=== PATIENT | male | born 1940 | race Caucasian/White ===

== ENCOUNTER 2023-04-12 09:06 | Outpatient (RCR) | payer MEDICARE, OTHER, SELFPAY | END 2023-04-12 23:59 | disposition home or self-care (01) | LOC: CRHB 09:06 | PROVIDERS: ATTENDING PHYSICIAN Internal Medicine Cardiovascular Disease; FAMILY PHYSICIAN Internal Medicine | DX: I50.22 Chronic systolic (congestive) heart failure (principal); I42.9 Cardiomyopathy, unspecified | CPT/HCPCS: G0422; G0423 ==

== ENCOUNTER 2023-05-08 08:38 | Emergency (ER) | payer MEDICARE, OTHER, SELFPAY ==
[2023-05-08 08:39] VITALS: BP 110/59
--- NOTE | 2023-05-08 09:32 | ED.MUSCINJ ---
HPI-Injury
General
Chief Complaint: Musculo-Skeletal Complaint
Source: patient
Exam Limitations: none
Time Seen by Provider: 05/08/23 09:13
Travel History
Have you had any contact with someone who has COVID-19?: No
Do you have any symptoms of coronavirus? Fever > 100 degrees, chills, cough, shortness of breath, sore throat, loss of taste or smell, muscle aches, or headache?: No
History of Present Illness-Injury
Initial Injury comments:
83-year-old male with cardiac history presents complaining of multiple complaints. Primary reason for calling EMS with right foot pain that started yesterday made worse with bearing weight. Secondarily he notes he has been tight, he is losing
weight he has been getting lightheaded when he stands. He is anticoagulated on Xarelto. He does have a history of gout. He is pretty active and uses the treadmill for cardiac rehab.
Past History
Past History
ED Past Medical History: Arrthythmia (atrial fibrillation), Asthma (Atrial fibrillation), CVA (TIA), HTN, Hypercholesterolemia and Other (Small bowel obstruction, left carotid endarterectomy, pulmonary embolus, previous C. difficile. DVT, Vertigo ,)
ED Past Surgical History: Bowel resection (With colostomy) and Cardiac (CABG)
Social History
Tobacco: Former smoker
Alcohol: Daily (One beer or Vodka)
Drug: None
Personal:
Living: with family
Employment: Retired
Family History
Family History: Other (Father with kidney failure)
Phy Exam
Physical Exam
Physical Exam:
General: Well-appearing male no acute respiratory distress
HEENT: Normocephalic atraumatic
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 Increased pain with resisted inversion of the foot. Plantar fascia nontender the Achilles tendon is nontender the big toe is nontender
Vascular: 2+ dorsalis pedis pulse right foot
Neurologic: Good sensation right foot
Injury Course
Orders/Labs/Results
Orders:
Orders
05/08/23 09:27
Orthostatic VS- Treatment ONCE
CR Foot - Right Min 3 Views Urgent
Comment:
Reason For Exam: pain
05/08/23 09:39
Complete Blood Count/With Diff Urgent
Comprehensive Metabolic Panel Urgent
05/08/23 10:54
Ortho Boot Right- Treatment ONCE
Short or tall?: Short
Abnormal Lab Results
05/08/23
09:39
RBC 4.45 L 10^6/uL
(4.70-6.10)
MCV 95.7 H fL
(80.0-94.0)
MCH 32.8 H pg
(27.0-31.0)
Plt Count 118 L 10^3/uL
(130-400)
MPV 12.0 H fL
(7.4-10.4)
Absolute Lymphs (auto) 0.7 L 10^3/uL
(1.2-3.4)
Absolute Monos (auto) 0.7 H 10^3/uL
(0.1-0.6)
Lymphocytes % 11.6 L %
(20.5-51.1)
Monocytes % 11.7 H %
(1.7-9.3)
BUN 48 H mg/dl
(9-20)
Creatinine 1.7 H mg/dL
(0.7-1.3)
Glucose 116 H mg/dl
(70-99)
Alkaline Phosphatase 204 H U/L
(38-126)
05/08/23 09:39
05/08/23 09:39
MDM/Problems Addressed
Differential Diagnosis Includes:
Right foot pain. Question tendinitis versus fracture versus stress response. Unlikely to be gout in the location he complains of
Generalized weakness with lightheadedness and weight loss. He notes a decreased appetite. Will check electrolytes and kidney functions. Orthostatic vital signs pendnig.
*Critical Care Note
Total Time (30-74mins, 75-104mins- exclusive of procedures): Not Applicable
Update Note
Update Note:
X-rays right foot negative. Suspect underlying tendinitis. Will place in boot. Workup otherwise showed improving renal functions. Orthostatic vital signs negative. 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
of the other complaints. Stable for discharge
ED Attending Note
-
Portions of this chart may have been created with voice recognition software.� Occasional wrong word or��sound alike� substitutions may have occurred due to the inherent limitations of voice recognition software.
Discharge Plan
Departure
Patient Disposition: Home (Routine Discharge)
Date of Disposition: 05/08/23
Time of Disposition: 10:59
Patient with high blood pressure during this ER visit?: No
Discharge Problem:
Foot tendinitis
Instructions: Muscle and Bone Pain (DC)
Prescriptions:
No Action
budesonide-formoterol [Symbicort] 1 PUFF HFA aerosol inhaler
2 puff inhalation R BID
metoprolol succinate [Toprol XL] 100 MG tablet extended release 24 hr
200 mg PO QPM
Xarelto 15 mg Tablet
15 mg PO QPM
atorvastatin 40 mg Tablet
40 mg PO QPM
Jardiance 10 mg Tablet
10 mg PO DAILY
cyanocobalamin (vitamin B-12) 1,000 mcg Tablet
1,000 mcg PO DAILY
Fruit and Vegetable Daily 5-6-150 mg Capsule
2 cap PO DAILY
magnesium citrate 125 mg Capsule
125 mg PO DAILY
acetaminophen [Tylenol] 325 mg Tablet
650 mg PO DAILYPRN PRN (Reason: pain)
hydralazine 25 mg Tablet
25 mg PO BID Qty: 60 11RF
potassium chloride 20 mEq Tablet,Er Particles/Crystals
20 meq PO DAILY Qty: 30 11RF
furosemide 80 mg Tablet
80 mg PO DAILY Qty: 30 11RF
Referrals:
Solo Orr MD [Family Provider] -
Activity Restrictions/Additional Instructions:
Use boot for ambulating. Use diclofenac gel topically. Rest. Return if worse otherwise follow-up with your treating physicians
Interventions
Interventions:
ED-Musculoskeletal Assessment Last Done: 05/08/23 09:50
[2023-05-08 09:50] VITALS: BP 112/43; BP 116/57; BP 125/49; PULSE 74; PULSE 76; PULSE 82
[2023-05-08 09:51] LABS: % Basophils 0.6 % (0-2); % Eosinophils 1.4 % (0-6); % Immature Granulocytes 0.5 % (0-0.5); % Lymphocytes 11.6 % (20.5-51.1); % Monocytes 11.7 % (1.7-9.3); % Neutrophils 74.2 % (42.2-75.2); Absolute Eosinophils 0.1 10^3/uL (0-0.7); Absolute Lymphocytes 0.7 10^3/uL (1.2-3.4); Absolute Monocytes 0.7 10^3/uL (0.1-0.6); Absolute Neutrophils 4.7 10^3/uL (1.4-6.5); Hematocrit 42.6 % (39.0-52.0); Hemoglobin 14.6 g/dL (13.0-18.0); Mean Corp Hgb Conc. 34.3 g/dL (33.0-37.0); Mean Corpuscular Hgb 32.8 pg (27.0-31.0); Mean Corpuscular Volume 95.7 fL (80.0-94.0); Nucleated Red Blood Cells % 0 % (-); Platelet Count 118 10^3/uL (130-400); Red Blood Cell Count 4.45 10^6/uL (4.70-6.10); Red Cell Dist. Width 13.7 % (11.5-14.5); White Blood Cell Count 6.3 10^3/uL (4.8-10.8)
[2023-05-08 10:31] LABS: ALT (SGPT) 32 U/L (0-50); AST (SGOT) 35 U/L (17-59); Albumin 3.8 g/dl (3.5-5.0); Alkaline Phosphatase 204 U/L (38-126); Blood Urea Nitrogen 48 mg/dl (9-20); Carbon Dioxide 22 mmol/L (22-30); Chloride 106 mmol/L (98-107); Glucose 116 mg/dl (70-99); Potassium 4.2 mmol/L (3.5-5.1); Sodium 135 mmol/L (135-145); Total Bilirubin 1.2 mg/dl (0.2-1.3); Total Protein 6.4 g/dl (6.3-8.2); eGFR 39.26
== END 2023-05-08 11:32 | disposition home or self-care (01) ==
LOC: EMR 08:38
PROVIDERS: Physician Assistant; EMERGENCY PHYSICIAN Emergency Medicine; FAMILY PHYSICIAN Internal Medicine
DX: M77.51 Other enthesopathy of right foot and ankle (principal); Z79.01 Long term (current) use of anticoagulants; Z87.891 Personal history of nicotine dependence
CPT/HCPCS: 99284; 73630; 80053; 85025

== ENCOUNTER → 2023-06-01 07:41 | Outpatient (REF) | payer MEDICARE, OTHER, SELFPAY ==
[2023-06-01 08:49] LABS: Albumin 4.2 g/dl (3.5-5.0); Blood Urea Nitrogen 63 mg/dl (9-20); Calcium 9.7 mg/dl (8.4-10.2); Carbon Dioxide 29 mmol/L (22-30); Chloride 100 mmol/L (98-107); Glucose 108 mg/dl (70-99); Phosphorus 4.4 mg/dl (2.5-4.5); Potassium 5.2 mmol/L (3.5-5.1); Sodium 136 mmol/L (135-145); Total Cholesterol 174 mg/dl (50-199); Triglyceride 89 mg/dl (10-149); Very Low Density Lipoprotein 17 mg/dl (0-30); eGFR 36.66
[2023-06-01 09:01] LABS: HDL Cholesterol 112 mg/dl; LDL Cholesterol, Calculated 45 mg/dl
[2023-06-01 09:04] LABS: Vitamin D, 25-OH*** 37.2 ng/mL (30-80)
[2023-06-01 11:19] LABS: Glycohemoglobin (HgbA1c) 6.5 % (4.0-5.6)
[2023-06-02 11:13] LABS: Intact PTH 163.4 pg/ml (13.6-85.8)
== END ==
LOC: HWLAB 07:41
PROVIDERS: ATTENDING PHYSICIAN Internal Medicine; FAMILY PHYSICIAN Internal Medicine
DX: N25.81 Secondary hyperparathyroidism of renal origin (principal); N18.32 Chronic kidney disease, stage 3b; R73.03 Prediabetes; E78.00 Pure hypercholesterolemia, unspecified
CPT/HCPCS: 36415; 80061; 80069; 82306; 83036; 83970

== ENCOUNTER → 2023-06-28 10:44 | Outpatient (REF) | payer MEDICARE, OTHER, SELFPAY | LOC: RAD 10:44 | PROVIDERS: ATTENDING PHYSICIAN Surgery Vascular Surgery; FAMILY PHYSICIAN Internal Medicine | DX: I65.23 Occlusion and stenosis of bilateral carotid arteries (principal) | CPT/HCPCS: 93880 ==

== ENCOUNTER → 2023-07-18 08:11 | Outpatient (REF) | payer MEDICARE, OTHER, SELFPAY ==
[2023-07-18 10:01] LABS: % Basophils 0.8 % (0-2); % Eosinophils 2.8 % (0-6); % Immature Granulocytes 0.2 % (0-0.5); % Lymphocytes 22.7 % (20.5-51.1); % Monocytes 10.1 % (1.7-9.3); % Neutrophils 63.4 % (42.2-75.2); Absolute Basophils 0.1 10^3/uL (0-0.2); Absolute Eosinophils 0.2 10^3/uL (0-0.7); Absolute Lymphocytes 1.4 10^3/uL (1.2-3.4); Absolute Monocytes 0.6 10^3/uL (0.1-0.6); Absolute Neutrophils 3.9 10^3/uL (1.4-6.5); Hematocrit 46.1 % (39.0-52.0); Hemoglobin 15.5 g/dL (13.0-18.0); Mean Corp Hgb Conc. 33.6 g/dL (33.0-37.0); Mean Corpuscular Volume 95.2 fL (80.0-94.0); Mean Platelet Volume 12.6 fL (7.4-10.4); Nucleated Red Blood Cells % 0 % (-); Platelet Count 128 10^3/uL (130-400); Red Blood Cell Count 4.84 10^6/uL (4.70-6.10); Red Cell Dist. Width 13.4 % (11.5-14.5); White Blood Cell Count 6.1 10^3/uL (4.8-10.8)
[2023-07-20 14:40] LABS: Albumin 3.85 g/dL (3.75-5.01); Alpha 1 Globulin 0.31 g/dL (0.19-0.46); Alpha 2 Globulin 0.64 g/dL (0.48-1.05); Free Kappa Light Chains,Quant 70.44 mg/L (3.30-19.40); Free Lambda Light Chains,Quant 39.15 mg/L (5.71-26.30); IgA 256 mg/dL (68-408); IgG 1245 mg/dL (768-1632); IgM 38 mg/dL (35-263); Immunofixation Electrophoresis IFE Done; Total Protein-Electrophoresis 6.9 g/dL (6.3-8.2)
== END ==
LOC: HWLAB 08:11
PROVIDERS: ATTENDING PHYSICIAN Internal Medicine Hematology & Oncology; FAMILY PHYSICIAN Internal Medicine
DX: D69.6 Thrombocytopenia, unspecified (principal); N18.30 Chronic kidney disease, stage 3 unspecified; R16.1 Splenomegaly, not elsewhere classified
CPT/HCPCS: 36415; 82784; 83521; 84155; 84165; 85025; 86334

== ENCOUNTER → 2023-08-10 08:12 | Outpatient (REF) | payer MEDICARE, OTHER, SELFPAY ==
[2023-08-10 11:25] LABS: Albumin 3.9 g/dl (3.5-5.0); Blood Urea Nitrogen 58 mg/dl (9-20); Calcium 9.4 mg/dl (8.4-10.2); Carbon Dioxide 23 mmol/L (22-30); Chloride 106 mmol/L (98-107); Glucose 109 mg/dl (70-99); Phosphorus 4.1 mg/dl (2.5-4.5); Potassium 3.5 mmol/L (3.5-5.1); Sodium 140 mmol/L (135-145); eGFR 36.66
== END ==
LOC: HWLAB 08:12
PROVIDERS: ATTENDING PHYSICIAN Internal Medicine; FAMILY PHYSICIAN Internal Medicine
DX: N18.32 Chronic kidney disease, stage 3b (principal)
CPT/HCPCS: 36415; 80069

== ENCOUNTER → 2023-12-10 12:57 | Outpatient (REF) | payer MEDICARE, OTHER, SELFPAY | LOC: HWRCS 12:57 | PROVIDERS: ATTENDING PHYSICIAN Internal Medicine Cardiovascular Disease; FAMILY PHYSICIAN Internal Medicine | DX: I42.8 Other cardiomyopathies (principal) | CPT/HCPCS: 93306 ==

== ENCOUNTER → 2024-01-04 10:34 | Outpatient (REF) | payer MEDICARE, OTHER, SELFPAY | LOC: RAD 10:34 | PROVIDERS: ATTENDING PHYSICIAN Internal Medicine | DX: K22.2 Esophageal obstruction (principal) | CPT/HCPCS: 74221 ==

== ENCOUNTER → 2024-07-02 10:50 | Outpatient (REF) | payer MEDICARE, OTHER, SELFPAY | LOC: RAD 10:50 | PROVIDERS: ATTENDING PHYSICIAN Registered Nurse; FAMILY PHYSICIAN Internal Medicine; OTHER PHYSICIAN Surgery Vascular Surgery | DX: I65.23 Occlusion and stenosis of bilateral carotid arteries (principal) | CPT/HCPCS: 93880 ==

== ENCOUNTER 2024-11-18 17:11 | Observation (INO) | payer MEDICARE, OTHER, SELFPAY ==
[2024-11-18] VITALS (14 sets, daily range): BP systolic 95–116; BP diastolic 53–83; PULSE 61–75; O2SAT 97; BMI 23.1; BMI 22.5
--- NOTE | 2024-11-18 08:20 | ED.GENMED ---
History of Present Illness
General
Chief Complaint: Dizziness
Source: patient and family
Exam Limitations: none
Time Seen by Provider: 11/18/24 08:00
Nursing documentation reviewed up to this point in time: agreed with
History of Present Illness
History of Present Illness:
Patient with history of CAD, congestive heart failure on Lasix, chronic kidney disease, atrial fibrillation, currently with pacemaker/defibrillator secondary to bradycardia on Xarelto, presents to ED secondary to persistent dizziness, especially
when standing up or moving his head over the past 3 days. Patient reports attending wedding on Sunday, where patient states that he may have had dietary indiscretion and also missed dose of Lasix. When he woke up on Sunday morning, as soon as he
got out of bed, he felt extreme dizziness, which caused him to sit back down on his bed. This did not however, alleviate his symptoms completely. However during the course of the day and over the past 2 days, symptoms have been tolerable, although
present. This morning when he woke up, he felt extreme dizziness again, prompting visit to ED. Patient reports mild diaphoresis with his symptoms. However, denies palpitations, nausea, or headache. Denies difficulty with speech. Denies loss of
sensation or weakness. Of note, as he missed a dose of Lasix with approximately 3 pound weight gain 3 days ago, patient's daughter, who lives with the patient, had patient take 2 extra doses of Lasix over the past 2 days, which did not affect his
symptoms at all. 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 Denies recent illness. Denies recent travel. Patient does have
remote history of 'vertigo', but he does not recall his symptoms at that time.
Past History
Past History
ED Past Medical History: Arrthythmia (atrial fibrillation), Asthma (Atrial fibrillation), CVA (TIA), HTN, Hypercholesterolemia and Other (Small bowel obstruction, left carotid endarterectomy, pulmonary embolus, previous C. difficile. DVT, Vertigo ,)
ED Past Surgical History: Bowel resection (With colostomy) and Cardiac (CABG)
Social History
Tobacco: Former smoker
Alcohol: Daily (One beer or Vodka)
Drug: None
Personal:
Living: with family
Employment: Retired
Family History
Family History: Other (Father with kidney failure)
Review of Systems
Review of Systems
Allergies reviewed?: Yes
All Other Systems: ROS reviewed and negative except as documented in HPI and ROS
Constitutional: Reports no symptoms
Respiratory: Reports no symptoms
Cardiac: Reports diaphoresis; Denies chest pain, palpitations or syncope
ABD/GI: Reports no symptoms; Denies nausea or vomiting
Musculoskeletal: Reports no symptoms
Skin: Reports no symptoms
Neurological: Reports dizzy; Denies headache, weakness or numbness
Phy Exam
Physical Exam
Physical Exam:
Physical Exam
General: mild distress, not acutely ill. afebrile.
Head: nc/at. eomi. no nystagmus noted
Neck: supple. no meningeal signs.
Heart: s1/s2 regular rate and rhythm, systolic ejection murmur noted
Lungs: no acute respiratory distress. clear bilaterally
Abdomen: normal bowel sounds. not tender.
Neuro: alert and oriented x3. no focal neurological deficits. normal speech.
Skin: no rash
Psychiatric: well kept. interactive and cooperative
Extremities: no edema. no calf tenderness.
Course
Orders/Labs/Results
Orders:
Orders
11/18/24 Breakfast
Sodium, 2 Gram
At Your Request: Full Participation
Does patient need a safe tray?: No
Reason for opting out of Ruling Technician order writing: Provider Decision
11/18/24 08:19
Electrocardiogram (*1) Urgent
Reason for Study: Vertigo / Dizzy
EKG- Treatment ONCE
Orthostatic VS- Treatment ONCE
11/18/24 08:31
Complete Blood Count/With Diff Urgent
Comprehensive Metabolic Panel Urgent
Magnesium Urgent
NT-proBNP Urgent
Comment: ADD ON
Troponin I Urgent
11/18/24 08:57
Urinalysis Reflex To Culture Urgent
Date Specimen was Collected: 11/18/24
Time Specimen was Collected: 08:56
Urine Microscopic Reflex Cult Urgent
Urine Culture Urgent
WENDY Source: U
Specimen Description:
Date Specimen was Collected: 11/18/24
Time Specimen was Collected: 08:56
11/18/24 11:50
CARDIOLOGY CONSULT Urgent
Consulting Provider: Gino Sierra
Was physician already notified: Yes
Reason for consult: dizziness
11/18/24 13:45
Add On- LAB Routine
Tests Added?: proBNP
11/18/24 15:10
CT Head W/o Iv Contrast Urgent
Comment:
Reason For Exam: dizziness
11/18/24 15:28
Meclizine [Antivert] 25 mg PO NOW STA
11/18/24 15:36
Echo 2D MMode Color/Doppler Routine
Reason for Study: dizziness, mod to severe
11/18/24 16:22
Admit/Transfer Patient As Directed
Co-Sign Provider:
Level of Care: Observation services
Assign to:: Telemetry
Physician / Group: Singh
Diagnosis: Dizziness
Reason for Telemetry: CVA/TIA
Date to Stop Telemetry: 11/21/24
Time to Stop Telemetry: 11:00
PRN Pain Medication Management As Directed
May give lesser potent ordered pain med per pt: Yes
preference::
Protocol:: Medication orders for pain may be administered in a
manner that supports deferring to patient preference
when the pt is:
- Requesting an ordered lesser potent pain medication.
Least to most potent pain medications are defined
as: acetaminophen < NSAID < tramadol < opioids
(morphine, oxycodone, hydromorphone).
- Requesting a lesser dose of the same medication IF
ORDERED.
- Requesting a less intrusive route of administration
if both routes are prescribed by the provider (PO <
IV).
11/18/24 16:28
Code Status As Directed
Resuscitation Status: Full Code
11/18/24 19:51
Acetaminophen [Tylenol] 650 mg PO DAILYPRN PRN mild pain
Atorvastatin [Lipitor] 40 mg PO QPM
Rivaroxaban [Xarelto] 15 mg PO QPM
11/18/24 19:51
MR Brain Without Contrast Routine
Comment:
Reason For Exam: dizziness
Recent pill cam endoscopy?: No
Pacemaker/Defibrillator?: Yes
Is the pacemaker a conditional type?: Yes
Activity As Directed
Activity Level: Out of Bed-Early Mobility
With Assistance
Pneumatic Compression Sleeves As Directed
Type: Knee high
Teds [Anti-embolism (LUIS E) Hose] As Directed
Type: Knee high
Vital Signs As Directed
Frequency: Per unit guidelines
Weight As Directed
Frequency: Daily
Ot Eval And Treat Routine
Pt Eval And Treat Routine
Activity Level: Out of Bed-Early Mobility
DX Deep Vein Thrombosis Video Routine
11/18/24 20:00
HydrALAZINE [Apresoline] 25 mg PO BID
Sodium Bicarbonate 650 mg PO BID
11/18/24 21:00
Metoprolol Xl [Toprol Xl] 200 mg PO QPM
11/18/24 22:00
Febuxostat (Non-Form) [Uloric] 40 mg PO HS
11/19/24 06:00
Basic Metabolic Panel IN AM
Magnesium IN AM
11/19/24 08:00
Dapagliflozin [Farxiga] 10 mg PO DAILY
Furosemide [Lasix] 80 mg PO DAILY
11/21/24 11:00
DC Protocol for Telemetry ONCE
Abnormal Lab Results
11/18/24 11/18/24
08: 08:57
RBC 4.49 L 10^6/uL
(4.70-6.10)
MCV 94.9 H fL
(80.0-94.0)
MCH 31.8 H pg
(27.0-31.0)
Plt Count 110 L 10^3/uL
(130-400)
MPV 12.6 H fL
(7.4-10.4)
Absolute Lymphs (auto) 1.0 L 10^3/uL
(1.2-3.4)
Absolute Monos (auto) 0.7 H 10^3/uL
(0.1-0.6)
Lymphocytes % 17.5 L %
(20.5-51.1)
Monocytes % 13.5 H %
(1.7-9.3)
BUN 40 H mg/dl
(9-20)
Creatinine 2.2 H mg/dL
(0.7-1.3)
Troponin I 0.053 H* ng/ml
Leukocyte Esterase Rfl 1+ A
(Negative)
Urine Glucose 3+ A
(Negative)
11/18/24 08:31
11/18/24 08:31
Vital Signs
Initial and Last Documented VS:
Initial Vital Signs
Temp Pulse Resp BP Pulse Ox
97.4 F 64 18 105/60 97
11/18/24 07:36 11/18/24 07:36 11/18/24 07:36 11/18/24 07:36 11/18/24 07:36
Last Documented Vital Signs
Temp Pulse Resp BP Pulse Ox
97.7 F 67 16 105/57 98
11/19/24 03:39 11/19/24 03:39 11/19/24 03:39 11/19/24 03:39 11/19/24 03:39
MDM/Problems Addressed
MDM/Problems Addressed:
Thrombocytopenia noted, which appears to be chronic. As patient has been compliant with Xarelto, potential diagnosis of CVA less likely.
Physical therapy evaluation pending, for potential vertiginous component to patient's presentation.
Pt evaluated by PT with recommendations provided.
Pacemaker interrogated and report reviewed, revealing nonsustained V. tach. However, atrial fibrillation/flutter detection functionality turned off.
Patient evaluated in ED by cardiology - recommends further evaluation as patient remains symptomatic
*Pulse Oximetry
SaO2: 97
Oxygen Mode of Delivery: Room air
Patient hypoxic: no
*EKG
Interpreted by ED Provider?: Yes
EKG Intrepretation Date: 11/18/24
Heart Rate: 62
Rate: normal
Rhythm: ventricular paced
*Critical Care Note
Total Time (30-74mins, 75-104mins- exclusive of procedures): Not Applicable
ED Attending Note
-
Portions of this chart may have been created with voice recognition software.� Occasional wrong word or��sound alike� substitutions may have occurred due to the inherent limitations of voice recognition software.
Discharge Plan
Departure
Patient Disposition: Admit
Date of Disposition: 11/18/24
Time of Disposition: 14:32
Admit to: Telemetry
Presentation/result/management discussed w/ accepting MD/DO: Hospitalist
Discharge Problem:
Dizziness
Interventions
Interventions:
*Risk Screen - Suicide Last Done: 11/18/24 07:36
*General Assessment Last Done: 11/18/24 07:36
*Neglect/Abuse Screening Last Done: 11/18/24 07:36
*ED COVID-19 Vaccine History Last Done: 11/18/24 20:39
*Nursing Disposition Last Done: 11/18/24 19:52
ED- Neurological Assessment Last Done: 11/18/24 08:30
ED- Cardiac Assessment Last Done: 11/18/24 08:30
ED Swallowing Screen Last Done: 11/18/24 11:00
Discharge Date and Time
Discharge Date/Time: 11/18/24 19:55
[2024-11-18 08:45] LABS: Hematocrit 42.6 % (39.0-52.0); Hemoglobin 14.3 g/dL (13.0-18.0); Mean Corp Hgb Conc. 33.6 g/dL (33.0-37.0); Mean Corpuscular Volume 94.9 fL (80.0-94.0); Nucleated Red Blood Cells % 0 % (-); Platelet Count 110 10^3/uL (130-400); Red Cell Dist. Width 13.7 % (11.5-14.5)
[2024-11-18 09:10] LABS: ALT (SGPT) 17 U/L (0-50); AST (SGOT) 23 U/L (17-59); Albumin 4.0 g/dl (3.5-5.0); Alkaline Phosphatase 104 U/L (38-126); Blood Urea Nitrogen 40 mg/dl (9-20); Calcium 9.2 mg/dl (8.4-10.2); Carbon Dioxide 26 mmol/L (22-30); Chloride 104 mmol/L (98-107); Estimated Creatinine Clearance 22 ml/min; Glucose 94 mg/dl (70-99); Magnesium 1.9 mg/dl (1.6-2.3); Potassium 3.7 mmol/L (3.5-5.1); Sodium 138 mmol/L (135-145); Total Protein 6.5 g/dl (6.3-8.2); eGFR 28.63
[2024-11-18 09:17] LABS: Troponin I 0.053 ng/ml
[2024-11-18 09:19] LABS: Urine Character Clear (Clear)
[2024-11-18 10:22] LABS: Urine Red Blood Cell 0-2 /HPF (0-2); Urine Squamous Cell 0-2 /LPF (Few)
--- NOTE | 2024-11-18 14:34 | HPS.HSE ---
Addendum entered and electronically signed by Timothy Winters MD 11/18/24 19:29:
This is an addendum to H&P written by Grace Brooks on 11/18/2024. �Patient seen and examined independently with PA
84-year-old male past medical history of CAD, HFrEF, nonischemic cardiomyopathy, nonsustained ventricular tachycardia, CKD 3B, CAD status post CABG, persistent atrial fibrillation on Xarelto, moderate to severe aortic stenosis, TIA, left carotid
endarterectomy, CVA, chronic thrombocytopenia, hypertension, hyperlipidemia, asthma, pulm embolism, DVT, colostomy, gastric ulcer, presenting with intermittent vertigo worse in the morning with rightward head turn. �No neurological symptoms. �No
chest pain or palpitations, shortness of breath.
Vital signs normal.
Orthostatic vitals negative. �
Patient with intermittent vertigo worse with rightward gaze concerning for BPPV versus rule out CVA versus arrhythmia. �PT noted negative Jean-Claude-Hallpike.
Vestibular therapy, as needed meclizine. �Interrogate pacemaker. �Check CT head. �Check MRI brain to rule out CVA. �Cardiology consulted.
Original Note:
Family Physician
-
Family Physician: Solo Orr
Chief Complaint
-
Dizziness
History of Present Illness
Patient is an 84 y/o male past medical history of ASCVD, CHF, , A-Fib, CKD, HTN, DVT/PE, and Emphysema who presents with dizziness. Patient reports on Sunday morning he developed dizziness which he describes as a spinning sensation. He notes
symptoms are worse in the morning, and he note symptoms are particularly worsen when he turns his head to the right. He report during the episodes he feels very unbalanced. He reports prior episodes of vertigo in the past.
Medical History
Past Medical History
Past Medical History: Reports Other
Additional Past Medical History:
Coronary Artery Disease s/p CABG
Chronic HFrEF
Cardiomyopathy
Paroxysmal Atrial Fibrillation
NSVT s/p ICD
Moderate/Severe Aortic Stenosis
CVA
Carotid Artery Stenosis
Essential Hypertension
Hyperlipidemia
CKD III
Chronic Metabolic Acidosis
DVT/PE
Asthma / COPD
Gout
Past Surgical History: Reports Other
Additional Past Surgical History:
CABG
Left Carotid Endarterectomy
Small Bowel Resection
Subtotal Colectomy with Ileostomy
Bilateral Total Knee Replacement
Social History
Tobacco: Former Smoker
Alcohol: None
Family History
Family History: Not pertinent
Allergies / Home Medications
Allergies reflects when Allergies were last updated in [facility].
Home Medications with original date entered in [facility]
Allergy/Medication List:
Allergies
Allergy/AdvReac Type Severity Reaction Status Date / Time
chlorhexidine Allergy Rash Verified 11/18/24 07:36
gabapentin Allergy swelling Verified 11/18/24 07:36
of lower
extremities
levofloxacin (From Levaquin) Allergy JOINT PAIN Verified 11/18/24 07:36
Sulfa (Sulfonamide Allergy Anaphylaxis Verified 11/18/24 07:36
Antibiotics)
Home Medications
atorvastatin 40 mg tablet 40 mg PO QPM High Cholesterol 08/28/22
empagliflozin 10 mg tablet (Jardiance) 10 mg PO DAILY Diabetes 08/28/22
rivaroxaban 15 mg tablet (Xarelto) 15 mg PO QPM Blood Clot Prevention/Tx 08/28/22
cyanocobalamin (vitamin B-12) 1,000 mcg tablet 1,000 mcg PO DAILY Supplement 10/31/22
sstzfthn-chefdy-shefn extract 5 mg-6 mg-150 mg capsule (Fruit and Vegetable Daily) 2 cap PO DAILY Supplement 10/31/22
acetaminophen 325 mg tablet (Tylenol) 650 mg PO DAILYPRN PRN mild pain 12/06/22
furosemide 80 mg tablet 80 mg PO DAILY #30 tabs 12/09/22
hydralazine 25 mg tablet 25 mg PO BID #60 tabs 12/09/22
febuxostat 40 mg tablet 40 mg PO HS 11/18/24
magnesium oxide 250 mg PO HS 11/18/24
metoprolol succinate 200 mg tablet,extended release 24 hr (Toprol XL) 200 mg PO QPM 11/18/24
sodium bicarbonate 650 mg tablet 650 mg PO BID 11/18/24
Review of Systems
-
A 12 point ROS was completed and negative except as noted: Yes
Constitutional: Denies Fever
EENT: Denies Sore Throat, Runny Nose or Other (Changes in hearing or ringing the ears)
Respiratory: Denies Cough or Trouble Breathing
Cardiac: Denies Chest Pain or Palpitations
Physical Exam
Vital Signs
Vital Signs
Temp Pulse Resp BP Pulse Ox
97.4 F 60 24 107/55 97
11/18/24 07:36 11/18/24 11:45 11/18/24 11:45 11/18/24 10:00 11/18/24 10:00
Physical Exam
General: Comfortable and Conversant
HEENT: Anicteric and Moist mucous membranes
Respiratory: Clear and Non Labored Respirations
Cardiac: S1/S2, Regular Rhythm and Murmur (2/6 CASPER)
GI: Soft, Non Tender and Ostomy
Rectal: Deferred by Provider
Musculoskeletal: No Clubbing, No Cyanosis and No Edema
Skin: Warm and Dry
Neuro: Awake, Alert, Oriented and Nonfocal/grossly intact
Psych: Calm
Laboratory Results
-
11/18/24 08:31
11/18/24 08:31
Laboratory Results
Total Bilirubin 1.3 mg/dl (0.2-1.3) 11/18/24 08:31
AST 23 U/L (17-59) 11/18/24 08:31
ALT 17 U/L (0-50) 11/18/24 08:31
Alkaline Phosphatase 104 U/L (38-126) 11/18/24 08:31
Troponin I 0.053 ng/ml H* 11/18/24 08:31
Data Reviewed
-
Lab Data: Labs Reviewed by me
Impression/Plan
-
Dizziness, suspect BPPV other possible differential include stroke and progression of valvular disease
-Cardiology consulted by ED staff
-Interogate pacemaker
-Check Echocardiogram
-Check Head CT, if negative plan for Brain MRI
-Orthostatic VS negative
-Trial Antivert with first dose now
-Consult PT/OT - Patient will likely benefit from vestibular therapy as outpatient
ASCVD
-Continue atorvastatin
Chronic HFrEF
-Echo Nov 2023: EF 25-30%
-Continue Lasix
-Continue Jardiance
-Monitor Daily Weights
Moderate/Severe Aortic Stenosis
-Check Echo
Persistent Atrial Fibrillation s/p Ablation
-Continue Metoprolol for rate control
-Continue Xarelto for anticoagulation
Essential Hypertension
-Continue Hydralazine and Metoprolol with hold parameters
CKD Stage III
-Creatinine seems to be at baseline
Chronic Metabolic Acidosis
-Continue sodium bicarb tablets
Hx DVT/PE
-Continue Xarelto
Code Status: Full Code
--- NOTE | 2024-11-18 15:21 | CON.CAR ---
Addendum entered and electronically signed by Fam Bullock MD 11/18/24 19:09:
I saw and examined the patient.
The Blow Molding Machine Tender's note was reviewed and I agree with the note.
Comment:
GEN: No distress, awake, Ox3
HEENT: supple, anicteric, mmm
LUNGS: CTA, no wheezes/rales
CV: Reg, S1/S2, 3/6 syst LSB, S3+
ABD: soft, BS+, NT/ND
EXT: No edema
NEURO: Gross non-focal
SKIN: No rash
Plan:
84-year-old male with past medical history of CABG x 4, moderate to severe aortic stenosis, chronic heart failure with reduced ejection fraction, BiV ICD and nonischemic cardiomyopathy with AVJ ablation and permanent A-fib presents with dizziness.
The patient was at a wedding where he had some dietary indiscretion weight was up 3 to 4 pounds. His daughter gave him extra doses of Lasix on Sunday and Sunday. At that point he started having some positional dizziness and he came to the
emergency room. He had significant fatigue and malaise. He denies any chest pains. He denies any orthopnea or PND.
His dizziness etiology remains unclear. His proBNP is elevated but is improved from prior studies and his weight overall looks stable. Chest x-ray is overall unremarkable.
I suspect he has more chronic heart failure with reduced ejection fraction. I will continue oral Lasix 80 mg p.o. daily for now. We will reassess him in AM.
Check echocardiogram to reevaluate LVEF and aortic valve. He does have moderate to severe aortic stenosis by previous echo with low gradients.
Creatinine is at 2.2. 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 Creatinine overall at baseline.
Continue Toprol, Xarelto, and Jardiance.
Blood pressure remains on the low side. Would hold hydralazine.
Original Note:
Consultation
Consultation Request
Date/Time Consultation Performed: 11/18/24
Requesting Provider: Dr. Brooke
Performing Provider: Jessica Gutierrez PA-C for Dr. Bullock
Reason for Consultation: dizziness
Medical History
-
Chief Complaint: dizziness
History of Present Illness:
Patient is an 84-year-old male with past medical history of CAD status post CABG x 4 in 2017, moderate to severe by echo in 2022, nonischemic cardiomyopathy with chronic heart failure with reduced EF and underwent Medtronic BiV ICD placement
10/2022. Due to persistent atrial fibrillation patient underwent AVJ ablation 11/2022. He has known PVCs and brief NSVT. He presented to [facility] for evaluation of dizziness. His daughter reports that he went to a wedding on Sunday and had some
dietary indiscretion. On Sunday he noted dizziness when he woke up in the morning and his daughter noted that his weight was up 3 to 4 pounds. She then gave him a triple dose of Lasix on Sunday and then gave him an extra dose of Lasix on
Sunday and Sunday. He states on Sunday and Sunday he still had some dizziness particularly with bending over, but was better than on Sunday, however then this morning woke up with significant worsening of dizziness again resulting in him coming
to the emergency room. He states he was barely able to walk and almost fell over, but was holding onto the sink which kept him up. In contrast, he states yesterday he was able to do his exercises and walk close to a mile. His weight did improve to
approximately baseline of 138 pounds with the extra doses of Lasix. He was scheduled for an upcoming echocardiogram 12/23 to reevaluate his EF and degree of aortic stenosis.
PM:
-Persistent atrial fibrillation, s/p AVJ ablation 12/06/22
-s/p Medtronic BIV ICD 10/25/22
-chronic HFrEF
-NICM
-History of PVCs, NSVT
-mod to severe , severe TR by echo 07/2022
-CAD s/p CABG x4 MORALES to LAD, seq with modified MAZE 2017
-chronic renal insufficiency
-TIA s/p L CEA 2001 at [place]
-History of CVA 09/2018
-chronic OAC with xarelto
-chronic thrombocytopenia
-CKD 3B
-HTN
-Asthma
-History of PE/DVT
-History of colostomy
-Remote history of GI ulcer
Past Medical History
Past Medical History: Other (in HPI)
Social History
Tobacco: Former Smoker (remote)
Alcohol: Occasional
Personal:
Employment: Retired
Family History
Family History: Cancer
Allergies / Home Medications
Allergy/AdvReac Type Severity Reaction Status Date / Time
chlorhexidine Allergy Rash Verified 11/18/24 07:36
gabapentin Allergy swelling Verified 11/18/24 07:36
of lower
extremities
levofloxacin (From Levaquin) Allergy JOINT PAIN Verified 11/18/24 07:36
Sulfa (Sulfonamide Allergy Anaphylaxis Verified 11/18/24 07:36
Antibiotics)
�Medication �Instructions �Recorded �Confirmed �Type
atorvastatin 40 mg tablet 40 mg PO QPM High Cholesterol 08/28/22 11/18/24 History
empagliflozin 10 mg tablet 10 mg PO DAILY Diabetes 08/28/22 11/18/24 History
(Jardiance)
rivaroxaban 15 mg tablet (Xarelto) 15 mg PO QPM Blood Clot 08/28/22 11/18/24 History
Prevention/Tx
cyanocobalamin (vitamin B-12) 1,000 mcg PO DAILY Supplement 10/31/22 11/18/24 History
1,000 mcg tablet
cwbkqpae-gpvena-wzpeu extract 5 2 cap PO DAILY Supplement 10/31/22 11/18/24 History
mg-6 mg-150 mg capsule (Fruit and
Vegetable Daily)
acetaminophen 325 mg tablet 650 mg PO DAILYPRN PRN mild pain 12/06/22 11/18/24 History
(Tylenol)
furosemide 80 mg tablet 80 mg PO DAILY #30 tabs 12/09/22 11/18/24 Rx
hydralazine 25 mg tablet 25 mg PO BID #60 tabs 12/09/22 11/18/24 Rx
febuxostat 40 mg tablet 40 mg PO HS 11/18/24 11/18/24 History
magnesium oxide 250 mg PO HS 11/18/24 11/18/24 History
metoprolol succinate 200 mg 200 mg PO QPM 11/18/24 11/18/24 History
tablet,extended release 24 hr
(Toprol XL)
sodium bicarbonate 650 mg tablet 650 mg PO BID 11/18/24 11/18/24 History
Review of Systems
-
History Source: Patient and Family
All other systems: Negative unless noted
Physical Exam
Vital Signs
Temp Pulse Resp BP Pulse Ox
97.4 F 60 24 107/55 97
11/18/24 07:36 11/18/24 11:45 11/18/24 11:45 11/18/24 10:00 11/18/24 10:00
Lab Results
11/18/24 08:31
11/18/24 08:31
Troponin I 0.053 ng/ml H* 11/18/24 08:31
Tnv-A-Dwkifdkfete Pept 6500 pg/ml 11/18/24 08:31
Physical Exam
General: No Apparent Distress and Comfortable
HEENT: Normocephalic, Anicteric and Moist Mucous Membranes
Respiratory: Clear and Non Labored Respirations
Cardiac: S1/S2, Irregular Rhythm and Murmur
GI: Soft, Non Tender, Non Distended and Normal Bowel Sounds
Musculoskeletal: No Clubbing, No Cyanosis and No Edema
Skin: Warm and Dry
Neuro: AO x 3
Impression / Plan
-
Primary Inside Sales Trainer: Dr. Potter
Assessment:
-Presentation with dizziness
-Permanent atrial fibrillation, s/p AVJ ablation 12/06/22
-s/p Medtronic BIV ICD 10/25/22
-chronic HFrEF
-NICM
-History of PVCs, NSVT
-mod to severe , severe TR by echo 11/2023
-CAD s/p CABG x4 MORALES to LAD, seq with modified MAZE 2017
-chronic renal insufficiency
-TIA s/p L CEA 2001 at [place]
-History of CVA 09/2018
-chronic OAC with xarelto
-chronic thrombocytopenia
-CKD 3B
-HTN
-Asthma
-History of PE/DVT
-History of colostomy
-Remote history of GI ulcer
ECHO 12/10/2023: EF 25 to 30%, global hypokinesis with regional variability, akinesis of apex and apical septum with paradoxical septal motion, dense MAC, mild to moderate MR, thickened leaflets and dilated LA, moderate to severe with peak/mean
gradients 25/16 mmHg, MAGDA 0.1 0.0 cm�, dilated RA, moderate TR, ICD wires and PASP 40 to 43 mmHg
Plan:
- Patient presents with dizziness of unclear etiology. He has multiple cardiac issues which could result in dizziness
- He has permanent atrial fibrillation status post AVJ ablation in 2022. EKG 11/18 vpaced rhythm. Also noted by device check in ER today to have multiple brief episodes of NSVT and PVCs. Would consider for addition of amiodarone if rhythm felt to
be etiology of dizziness. Continue outpatient Xarelto
- He recently had dietary indiscretion and his daughter gave him extra Lasix on Sunday, Sunday, Sunday. His proBNP is 6500. No complaints of lower extremity edema or significant shortness of breath. Takes p.o. Lasix 80 mg daily� consider
placing on 80 mg IV daily and follow response. Creatinine 2.2
- Also has moderate to severe by last echo from 2023. Will repeat, ordered by me, as was due for next echo 12/23/2024.
- Continue PT/OT evaluations
- Check head CT. has history of TIA/CVA in past
- Reportedly with negative orthostatics in the ER
- trop 0.053. no complaints of CP. trend
- d/w patient and daughter at bedside. d/w ER physician
Data Reviewed
-
EKG: Tracing Personally Visualized and interpreted
Medical Tests (Nuc Med, Echo etc): Report Reviewed by me
Labs: Labs Reviewed by me
Old Records: Reviewed
--- NOTE | 2024-11-18 18:04 | CM ---
CM reviewed chart and met with pt and daughter bedside in ED. Lives with daughter and her , 1 story home, [address].
Independent in ADLs, personal care and ambulation at baseline, Does have walker, cane and wheelchair but does not use.
Young reviewed and signed, copy given to pt.
Hx [facility] in past, no hx SNF.
Pt's daughter has reached out to vestibular therapy and is setting up an appointment.
Pt confirms prescription coverage through [facility].
PCP: Solo Orr
Pharmacy: [facility]
Anticipate discharge home with OP vestibular therapy, CM will continue to follow.
--- NOTE | 2024-11-18 20:00 | PTCARENOTE ---
Patient arrived from the ED via stretcher. Patient AAOx3, VSS. No current c/o lightheadedness or dizziness. Patient has a colostomy - self care. Voided in the bathroom w/o complaints. Educated on medications, and oriented to the room. Fall risk band
applied. Call omer is within reach.
[2024-11-18] MEDS: ULORIC 40 MG PO (20:36)
[2024-11-18] MEDS: SODIUM BICARBONATE 650 MG PO (20:36)
[2024-11-18] MEDS: XARELTO 15 MG PO (20:36)
[2024-11-18] MEDS: LIPITOR 40 MG PO (20:36)
[2024-11-18] MEDS: TYLENOL 650 MG PO (20:55)
[2024-11-19] VITALS (7 sets, daily range): BP systolic 102–129; BP diastolic 53–81; PULSE 63–82; O2SAT 98–99; BMI 22.5
[2024-11-19 08:28] LABS: Blood Urea Nitrogen 38 mg/dl (9-20); Calcium 9.0 mg/dl (8.4-10.2); Carbon Dioxide 27 mmol/L (22-30); Chloride 104 mmol/L (98-107); Estimated Creatinine Clearance 27 ml/min; Glucose 83 mg/dl (70-99); Magnesium 1.9 mg/dl (1.6-2.3); Potassium 3.6 mmol/L (3.5-5.1); Sodium 137 mmol/L (135-145); eGFR 36.43
[2024-11-19] MEDS: SODIUM BICARBONATE 650 MG PO (09:00)
[2024-11-19] MEDS: FARXIGA 10 MG PO (09:00)
[2024-11-19] MEDS: LASIX 80 MG PO (09:02)
--- NOTE | 2024-11-19 13:21 | W.PN.HOSP.TC ---
Addendum entered and electronically signed by Shaheen Harrington MD 11/19/24 14:56:
Discussed with cardiology, okay to discharge today
Original Note:
Today's Communication/Plan
-
monitor vitals
see plan
dizziness improved
replete K and Mg
cardiology to see today
possible dc if ok with cardiology
Assessment / Plan
Assessment / Plan
General: Comfortable and Conversant
HEENT: Anicteric and Moist mucous membranes
Respiratory: Clear and Non Labored Respirations
Cardiac: S1/S2, Regular Rhythm and Murmur (2/6 CASPER)
GI: Soft, Non Tender and Ostomy
Musculoskeletal: No Edema
Neuro: Awake, Alert, Oriented and Nonfocal/grossly intact
Psych: Calm
Dizziness, suspect BPPV and progression of valvular disease
- Cardiology following
-Interrogate ICD
- Echo with reduced EF, not much change from previous echo
- CT head without any acute intracranial abnormality, cannot get MRI due to unconditional cardiac device
-Orthostatic VS negative
- Dizziness now resolved
- Already has vestibular therapy scheduled
ASCVD
-Continue atorvastatin
Chronic HFrEF
-Echo Nov 2023: EF 25-30%
-Continue Lasix
-Continue Jardiance
-Monitor Daily Weights
Has ICD, few beats of VT, nonsustained. Replete electrolytes
Moderate/Severe Aortic Stenosis
- Echo noted
Persistent Atrial Fibrillation s/p Ablation
-Continue Metoprolol for rate control
-Continue Xarelto for anticoagulation
Essential Hypertension
-Continue Hydralazine and Metoprolol with hold parameters
CKD Stage III
-Creatinine seems to be at baseline
Chronic Metabolic Acidosis
-Continue sodium bicarb tablets
History of TIA/CVA
Hx DVT/PE
-Continue Xarelto
Code Status: Full Code
Anticipated Discharge: Within 24 hours
Subjective/Interval History
-
Date of Service: November 19, 2024
denies dizziness
Objective Data
-
Labs:
Laboratory Results
11/19/24
06:26
Sodium 137
Potassium 3.6
Chloride 104
Carbon Dioxide 27
BUN 38 H
Creatinine 1.8 H
Glucose 83
Calcium 9.0
Vital Signs:
Vital Signs
Temp Pulse Resp BP Pulse Ox
97.3 F 75 18 102/56 98
11/19/24 11:19 11/19/24 11:19 11/19/24 11:19 11/19/24 11:19 11/19/24 11:19
--- NOTE | 2024-11-19 13:32 | PTCARENOTE ---
13 beats of Vtach noted on tele. Patient asymptomatic. Hospitalist and Utilities Equipment Repairer made aware. Mag terrell and YAQUELIN Martinez ordered.
[2024-11-19] MEDS: MAGNESIUM SULFATE 50 IV (13:47)
[2024-11-19] MEDS: KCL 40 MEQ PO (13:50)
--- NOTE | 2024-11-19 13:53 | PTOTSP ---
pt currently requires supervision to no assistance to complete simple ADLs, functional transfers, ambulation. pt does endorse dizziness when turning head to right. pt seen with PT, recommend treatment for dizziness as an outpatient. no OT needs
identified at this time, will sign off.
--- NOTE | 2024-11-19 14:56 | W.DCSUMMARY ---
Discharge Summary
Discharge Data
Date of Admission: 11/18/24
Date of Discharge: 11/19/24
-
Pending Results: No
Hospital Course
84-year-old male with history of chronic CHF with reduced EF, moderate to severe aortic stenosis, persistent atrial fibrillation status post ablation, essential hypertension, CKD, chronic metabolic acidosis, history of TIA/CVA, CAD came to the
hospital with dizziness which was likely thought was possibly secondary to BPPV. Patient ICD was also interrogated by cardiology. Patient was seen by cardiology throughout hospitalization. Orthostatics were done and they were negative. Over
time, patient dizziness continued to improve on its own. He also got an echocardiogram which was unchanged from prior ultrasound. Since his symptoms continue to improve, he was then discharged home with instructions to follow-up with all his
physicians outpatient.
Discharge Plan
-
Patient Disposition: Home (Routine Discharge)
Discharge Diagnosis/Procedures: Dizziness
Chronic congestive heart failure with reduced ejection fraction
Aortic stenosis
Condition: Fair
Diet: As tolerated
Activity: As tolerated
Driving Restrictions: As prior to admission
Bathing Restrictions: None
Specialty Instructions: Weigh Daily- Call MD for wt gain/loss 3 lbs overnight/5 lbs in 1 week
Instructions: *DCA Heart Failure Instructions
Referrals:
Los Potter MD [Active, Cardiology] - 12/23/24 11:20 am
Referral Note: Your appointment time has changed from 11:00 to 11:20 at the [place] office. Please call with questions.
Solo Orr MD [Family Provider, Internal Medicine] - in less than 1 week
Prescriptions:
Continued
Xarelto 15 mg Tablet
15 mg PO QPM
atorvastatin 40 mg Tablet
40 mg PO QPM
Jardiance 10 mg Tablet
10 mg PO DAILY
cyanocobalamin (vitamin B-12) 1,000 mcg Tablet
1,000 mcg PO DAILY
Fruit and Vegetable Daily 5-6-150 mg Capsule
2 cap PO DAILY
acetaminophen [Tylenol] 325 mg Tablet
650 mg PO DAILYPRN PRN (Reason: mild pain)
hydralazine 25 mg Tablet
25 mg PO BID Qty: 60 11RF
furosemide 80 mg Tablet
80 mg PO DAILY Qty: 30 11RF
sodium bicarbonate 650 mg Tablet
650 mg PO BID
febuxostat 40 mg Tablet
40 mg PO HS
metoprolol succinate [Toprol XL] 200 mg Tablet Extended Release 24 Hr
200 mg PO QPM
magnesium oxide 250 mg magnesium Tablet
250 mg PO HS
Discharge Orders:
Discharge Patient (As Directed); Ordered 11/19/24
Ordered By: Shaheen Harrington
Discharge Date and Time
Discharge Date/Time: 11/19/24 15:44
Print Language: CAP[place]AN
--- NOTE | 2024-11-19 17:28 | W.PN.CARDCBS ---
Today's Communication / Plan
-
Okay for discharge.
We reviewed his echo at length.
Would be reasonable to consider dobutamine stress echo as outpatient if he prefers or desires an evaluation for transcatheter aortic valve replacement.
Ejection fraction remains depressed, but creatinine is stable.
Impression / Plan
-
Primary Associate Programmer: Dr. Potter
Assessment:
-Presentation with dizziness
-Permanent atrial fibrillation, s/p AVJ ablation 12/06/22
-s/p Medtronic BIV ICD 10/25/22
-chronic HFrEF
-NICM
-History of PVCs, NSVT
-mod to severe , severe TR by echo 11/2023
-CAD s/p CABG x4 MORALES to LAD, seq with modified MAZE 2017
-chronic renal insufficiency
-TIA s/p L CEA 2001 at [place]
-History of CVA 09/2018
-chronic OAC with xarelto
-chronic thrombocytopenia
-CKD 3B
-HTN
-Asthma
-History of PE/DVT
-History of colostomy
-Remote history of GI ulcer
ECHO 12/10/2023: EF 25 to 30%, global hypokinesis with regional variability, akinesis of apex and apical septum with paradoxical septal motion, dense MAC, mild to moderate MR, thickened leaflets and dilated LA, moderate to severe with peak/mean
gradients 25/16 mmHg, MAGDA 0.1 0.0 cm�, dilated RA, moderate TR, ICD wires and PASP 40 to 43 mmHg
Plan:
Dizziness has resolved and he feels better. Blood pressure stable at 115/81. I reviewed his echo with him and his daughter. His ejection fraction remains severely depressed and 25 to 30% with likely moderate to severe aortic stenosis with mean
gradient of 16 and aortic valve area 1.0. We discussed possible dobutamine stress echo as outpatient to better assess his aortic valve to assess its severity. This could be pseudo AAS with his reduced ejection fraction. His mitral and tricuspid
valves are stable.
Okay to restart Lasix 80 mg daily. Continue Toprol, Xarelto, hydralazine, and rosuvastatin.
Creatinine overall improved at 1.8.
I discussed at length with him and his daughter. Okay for discharge with close follow-up with Dr. Bala dennis
Progress Note - Associate Programmer
Subjective
Date of Service: November 19, 2024
Feels well and no further lightheadedness or dizziness.
Objective
Labs:
11/18/24 08:31
11/19/24 06:26
Labs
Hgb 14.3 g/dL (13.0-18.0) 11/18/24 08:31
Hct 42.6 % (39.0-52.0) 11/18/24 08:31
Plt Count 110 10^3/uL (130-400) L 11/18/24 08:31
Sodium 137 mmol/L (135-145) 11/19/24 06:26
Potassium 3.6 mmol/L (3.5-5.1) 11/19/24 06:26
BUN 38 mg/dl (9-20) H 11/19/24 06:26
Creatinine 1.8 mg/dL (0.7-1.3) H 11/19/24 06:26
Glucose 83 mg/dl (70-99) 11/19/24 06:26
Troponins
11/18/24
08:31
Troponin I 0.053 H*
Vital Signs and I&O:
Vital Signs
Temp Pulse Resp BP Pulse Ox
97.4 F 54 18 115/81 95
11/19/24 15:36 11/19/24 15:36 11/19/24 15:36 11/19/24 15:36 11/19/24 15:36
Vital Signs
Temp Pulse Resp BP Pulse Ox
97.4 F 54 18 115/81 95
11/19/24 15:36 11/19/24 15:36 11/19/24 15:36 11/19/24 15:36 11/19/24 15:36
Physical Exam
Physical Exam
GEN: No distress, awake, Ox3
HEENT: supple, anicteric, mmm
LUNGS: CTA, no wheezes/rales
CV: Reg, S1/S2, 2/6 syst LSB, no gallop
ABD: soft, BS+, NT/ND
EXT: No edema
NEURO: Gross non-focal
SKIN: No rash
== END 2024-11-19 15:44 | disposition home or self-care (01) ==
LOC: 4 EAST ACU 17:11
PROVIDERS: Physician Assistant Medical; ADMITTING PHYSICIAN Hospitalist; ATTENDING PHYSICIAN Internal Medicine; EMERGENCY PHYSICIAN Emergency Medicine; FAMILY PHYSICIAN Internal Medicine; OTHER PHYSICIAN Internal Medicine Cardiovascular Disease
DX: R42 Dizziness and giddiness (principal); I25.10 Atherosclerotic heart disease of native coronary artery without angina pectoris; I13.0 Hypertensive heart and chronic kidney disease with heart failure and stage 1 through stage 4 chronic kidney disease, or unspecified chronic kidney disease; I42.8 Other cardiomyopathies; N18.32 Chronic kidney disease, stage 3b; I48.21 Permanent atrial fibrillation; I35.0 Nonrheumatic aortic (valve) stenosis; D69.6 Thrombocytopenia, unspecified; E78.00 Pure hypercholesterolemia, unspecified; I50.22 Chronic systolic (congestive) heart failure; E87.22 Chronic metabolic acidosis; M10.9 Gout, unspecified; J44.89 Other specified chronic obstructive pulmonary disease; Z79.01 Long term (current) use of anticoagulants; Z79.899 Other long term (current) drug therapy; Z86.711 Personal history of pulmonary embolism; Z86.718 Personal history of other venous thrombosis and embolism; Z86.73 Personal history of transient ischemic attack (TIA), and cerebral infarction without residual deficits; Z87.891 Personal history of nicotine dependence; Z95.1 Presence of aortocoronary bypass graft; Z95.810 Presence of automatic (implantable) cardiac defibrillator
CPT/HCPCS: 70450; 80048; 80053; 81003; 81015; 83735; 83880; 84484; 85025; 87086; 93005; 93306; 97116; 97166; 99285; G0378

== ENCOUNTER → 2025-02-24 09:39 | Outpatient (REF) | payer MEDICARE, OTHER, SELFPAY ==
[2025-02-24 11:37] LABS: C-Reactive Protein 39.80 mg/L (0.0-10.00)
== END ==
LOC: RAD 09:39
PROVIDERS: ATTENDING PHYSICIAN Student in an Organized Health Care Education/Training Program; FAMILY PHYSICIAN Internal Medicine
DX: M25.562 Pain in left knee (principal)
CPT/HCPCS: 36415; 78315; 85652; 86140; A9503